=== PATIENT | male | born 1985 | race Caucasian/White ===

== ENCOUNTER 2017-08-24 16:46 | Emergency (ER) | payer OTHER ==
[~2017-08-24] VITALS: Ht 190.5 cm; Wt 108.9 kg
[~2017-08-24 16:46] MED LIST: AMBIEN5 MG PO; AMITRIPTYLINE25 MG PO; CYCLOBENZAPRINE10 MG PO; HYDROCODONE BIT1 T11 PO; PREDNISONE50 MG PO; SEPTRA DS 800 M1 TAB PO; ZOLOFT100 MG PO
[2017-08-24 16:56] VITALS: BP 158/76
[2017-08-24] MEDS ORDERED: CEFADROXIL500 M1 PO (17:12)
[2017-08-24] MEDS ORDERED: ANAPROX DS550 MG PO (17:12)
== END 2017-08-24 17:22 | disposition home or self-care (01) ==
LOC: ED 16:46
DX: S90.811A Abrasion, right foot, initial encounter (principal); L08.9 Local infection of the skin and subcutaneous tissue, unspecified; F17.200 Nicotine dependence, unspecified, uncomplicated; Z88.2 Allergy status to sulfonamides; Z79.899 Other long term (current) drug therapy; X58.XXXA Exposure to other specified factors, initial encounter; Y93.89 Activity, other specified; Y92.69 Other specified industrial and construction area as the place of occurrence of the external cause; Y99.9 Unspecified external cause status

== ENCOUNTER 2025-04-14 04:00 | Emergency (ER) | payer OTHER ==
[~2025-04-14] VITALS: Ht 190.5 cm; Wt 124.7 kg
[~2025-04-14 04:00] MED LIST changes: +ANAPROX DS550 MG PO; +CEFADROXIL500 M1 PO
[2025-04-14 04:14] VITALS: BP 157/102
[2025-04-14] MEDS ORDERED: METHOCARBAMOL 750 MG TAB PO ONE (04:30)
[2025-04-14] MEDS ORDERED: METHOCARBAMOL750 M1 PO (05:10)
[2025-04-14] MEDS ORDERED: NAPROSYN500 MG PO (05:10)
== END 2025-04-14 05:15 | disposition home or self-care (01) ==
LOC: ED 04:00
DX: S39.012A Strain of muscle, fascia and tendon of lower back, initial encounter (principal); Z88.2 Allergy status to sulfonamides; Z79.899 Other long term (current) drug therapy; X50.0XXA Overexertion from strenuous movement or load, initial encounter; Y93.89 Activity, other specified; Y92.89 Other specified places as the place of occurrence of the external cause; Y99.8 Other external cause status